=== PATIENT | male | born 1980 | race Caucasian/White ===

== ENCOUNTER 2016-12-24 21:48 | Outpatient (CLI) | payer MEDICAID | END 2016-12-24 21:49 | disposition critical access hospital (66) | LOC: EMS 21:48 | PROVIDERS: ATTEND Surgery | DX: R56.9 Unspecified convulsions (principal); W18.39XA Other fall on same level, initial encounter; Y93.89 Activity, other specified; Y92.009 Unspecified place in unspecified non-institutional (private) residence as the place of occurrence of the external cause | CPT/HCPCS: A0425; A0429 ==

== ENCOUNTER 2016-12-24 22:09 | Emergency (ER) | payer MEDICAID ==
[2016-12-24] MEDS ORDERED: TETANUS/DIPHTHERIA/PERTUSSIS 0.5 ML SYRINGE IM ONE ×3 (22:22→22:47)
--- NOTE | 2016-12-24 23:03 | ED Physician Documentation ---
PD HPI SEIZURE - Stated complaint Stated Complaint: FALL - Chief complaint Chief Complaint: Neuro - History obtained from History obtained from: Patient, Family, EMS - History of Present Illness Timing - onset: How many minutes ago (40) Witnessed: Witnessed Number of seizures: Single Description of seizure activity: Generalized Injury during seizure: Fell, Head injury Associated symptoms: No: Headache, Vision changes History of seizures: Known seizure disorder Contributing factors: Other Similar symptoms before: Work up / diagnostics, Treatment, Follow up Recently seen: Not recently seen - Additional information Additional information: Patient is a 36 year old male with a 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 According to patient, family and ems patient gets recurrent seizures and his triggers can be anything from getting to hot, to getting excited. today he was carrying boxes outside and he started to feel a seizure coming on. patient went to take his break through benzo but proceeded to have a seizure. Patient fell hitting his head and knees. Upon initial evaluation in the emergency department patient was awake, alert and at his baseline. Patient had multiple abrasions but no lacerations. Review of Systems Constitutional: denies: Fever, Myalgias Eyes: denies: Decreased vision, Photophobia Ears: denies: Ear pain, Drainage/discharge Nose: denies: Rhinorrhea / runny nose, Epistaxis Throat: denies: Dental pain / toothache Cardiac: denies: Chest pain / pressure Respiratory: denies: Cough, Wheezing GI: denies: Abdominal Pain, Nausea, Vomiting Skin: reports: Abrasion (s) Musculoskeletal: reports: Extremity pain. denies: Neck pain, Back pain, Joint pain Neurologic: reports: Seizure. denies: Generalized weakness, Focal weakness, Altered mental status Immunocompromised: denies: Immunocompromised PD PAST MEDICAL HISTORY - Past Medical History Past Medical History: Yes Neuro: Seizure disorder Other Past Medical History: Chronic tumor disorder. 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 - Past Surgical History Past Surgical History: Yes Neuro: Craniotomy - Present Medications Home Medications: Ambulatory Orders Medication Instructions Recorded Confirmed Gabapentin 600 mg ORAL DAILY 12/24/16 12/24/16 Gabapentin [Gralise] 1,200 mg ORAL DAILY 12/24/16 12/24/16 LORazepam [Ativan] 0.25 mg ORAL DAILY PRN 12/24/16 12/24/16 Lamotrigine [Lamictal] 200 mg ORAL BID 12/24/16 12/24/16 carBAMazepine ER [TEGretol XR] 200 mg ORAL DAILY 12/24/16 12/24/16 - Allergies Allergies/Adverse Reactions: Allergies Allergy/AdvReac Type Severity Reaction Status Date / Time cefaclor [From Ceclor] Allergy Unknown Verified 12/24/16 22:19 Penicillins Allergy Unknown Verified 12/24/16 22:19 sulfamethoxazole Allergy Unknown Verified 12/24/16 22:19 [From Bactrim] trimethoprim [From Bactrim] Allergy Unknown Verified 12/24/16 22:19 - Social History Does the pt smoke?: No Smoking Status: Never smoker Does the pt drink ETOH?: No Does the pt have substance abuse?: No - Immunizations Immunizations are current?: Yes - POLST Patient has POLST: No PD ED PE NORMAL - Vitals Vital signs reviewed: Yes - General General: Alert and oriented X 3, No acute distress - HEENT HEENT: PERRL, Moist mucous membranes, Dentition benign - Neck Neck: No bony TTP - Cardiac Cardiac: RRR - Respiratory Respiratory: No respiratory distress - Abdomen Abdomen: Soft, Non tender, Non distended - Neuro Neuro: Alert and oriented X 3, No motor deficit, Normal speech PD ED PE EXPANDED - HEENT HEENT: Head injury (multiple abrasions on face, most above right eye, no laceration, no bony deformity, no crepitus) - Extremities Extremities: Abrasion (abrasions on bilateral knees and right hand), 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 Patient was awake alert and at his baseline. Patient's wounds were cleaned and dressed but there was nothing to repair. Patient showed no signs of fracture or dislocations so no imaging was indicated. Patient's seizure was typical of his seizures with a known trigger. Patient had close neurological follow up. Patient and family were comfortable with discharge and outpatient follow up. Departure - Departure Disposition: 01 Home, Self Care Clinical Impression: Abrasions of multiple sites, Seizure Condition: Good Instructions: ED Abrasion, Epilepsy Dc Follow-Up: primary,care physician [Other] - Tomorrow Comments: For the abrasions try to keep the areas clean and dry. You should take a regular shower tonight and clean the wounds with soap and water. You should apply topical antibiotics to the wounds for the next three to four days. You should continue to monitor for signs of infection. (increased redness, swelling or discharge). You should call your neurologist tomorrow to schedule a follow up appointment. You should continue with your anti epileptic medication and try to avoid any triggers over the next week. Forms: Activity restrictions Discharge Date/Time: 12/24/16 23:16
[2016-12-24 23:13] VITALS: BP 145/73
== END 2016-12-24 23:16 | disposition home or self-care (01) ==
LOC: EDUNIT# → ED 22:09
DX: S00.211A Abrasion of right eyelid and periocular area, initial encounter (principal); S80.212A Abrasion, left knee, initial encounter; S80.211A Abrasion, right knee, initial encounter; S60.511A Abrasion of right hand, initial encounter; W01.0XXA Fall on same level from slipping, tripping and stumbling without subsequent striking against object, initial encounter; G40.909 Epilepsy, unspecified, not intractable, without status epilepticus
CPT/HCPCS: 90471; 99283